=== PATIENT | female | born 1985 | race Caucasian/White ===

== ENCOUNTER 2017-07-05 21:55 | Emergency (ER) | payer MEDICAID | END 2017-07-05 23:04 | disposition home or self-care (01) | LOC: D.ER 21:55 | DX: S60.022A Contusion of left index finger without damage to nail, initial encounter (principal); X58.XXXA Exposure to other specified factors, initial encounter; Y93.89 Activity, other specified; Y92.019 Unspecified place in single-family (private) house as the place of occurrence of the external cause ==

== ENCOUNTER 2018-02-23 18:30 | Emergency (ER) | payer MEDICAID ==
[~2018-02-23] VITALS: Ht 154.9 cm; Wt 56.8 kg
[2018-02-23 18:43] VITALS: Ht 154.9 cm; Wt 56.8 kg
[2018-02-23] MEDS ORDERED: LITHIUM CI8 MEQ/5 ML (18:43)
[2018-02-23] MEDS ORDERED: GABAPENTIN100 MG (18:43)
[2018-02-23] MEDS ORDERED: PROZAC10 MG (18:44)
[2018-02-23] MEDS ORDERED: CLONAZEPAM2 MG/TAB (18:44)
[2018-02-23] MEDS ORDERED: VITAMIN B COMPL1 TAB PO (18:44)
[2018-02-23] MEDS ORDERED: HYDROCODON-ACE1 EAC7 PO (20:26)
[2018-02-23 20:41] VITALS: BP 122/67
== END 2018-02-23 20:42 | disposition home or self-care (01) ==
LOC: D.ER 18:30
DX: S62.637A Displaced fracture of distal phalanx of left little finger, initial encounter for closed fracture (principal); X58.XXXA Exposure to other specified factors, initial encounter; Y93.89 Activity, other specified; Y92.019 Unspecified place in single-family (private) house as the place of occurrence of the external cause; G80.9 Cerebral palsy, unspecified; F31.9 Bipolar disorder, unspecified

== ENCOUNTER 2018-03-05 23:32 | Emergency (ER) | payer MEDICAID ==
[~2018-03-05] VITALS: Ht 154.9 cm; Wt 56.8 kg
[~2018-03-05 23:32] MED LIST: CLONAZEPAM2 MG/TAB; GABAPENTIN100 MG; HYDROCODON-ACE1 EAC7 PO; LITHIUM CI8 MEQ/5 ML; PROZAC10 MG; VITAMIN B COMPL1 TAB PO
[2018-03-05 23:56] VITALS: BP 151/106; Ht 154.9 cm; Wt 56.8 kg
== END 2018-03-06 00:30 | disposition left against medical advice (07) ==
LOC: D.ER 23:32
DX: S69.90XA Unspecified injury of unspecified wrist, hand and finger(s), initial encounter (principal); X58.XXXA Exposure to other specified factors, initial encounter; Y93.9 Activity, unspecified; Y92.9 Unspecified place or not applicable

== ENCOUNTER 2018-03-23 23:17 | Emergency (ER) | payer MEDICAID ==
[~2018-03-23] VITALS: Ht 154.9 cm; Wt 54.5 kg
[2018-03-23 23:22] VITALS: BP 124/84; Ht 154.9 cm; Wt 54.5 kg
== END 2018-03-23 23:54 | disposition left against medical advice (07) ==
LOC: D.ER 23:17
DX: M79.642 Pain in left hand (principal)

== ENCOUNTER 2018-05-06 17:57 | Emergency (ER) | payer MEDICAID ==
[~2018-05-06] VITALS: Ht 154.9 cm; Wt 52.3 kg
[2018-05-06 18:01] VITALS: Ht 154.9 cm; Wt 52.3 kg
[2018-05-06 18:30] LABS: BASOPHILS 0.1 % (0-2); EOSINOPHILS 0.4 % (0-7); HEMATOCRIT 35.7 % (36.0-48.0); HEMOGLOBIN 11.4 g/dL (12-16); IMMATURE GRANULOCYTES 0.3 % (0-5); LYMPHOCYTES 12.4 % (15-50); MCH 26.1 pg (26.0-34.0); MCHC 31.9 g/dL (31.0-37.0); MCV 81.7 fL (80.0-100.0); MEAN PLATELET VOLUME 11.3 fL (7.4-10.4); MONOCYTES 6.8 % (2-11); PLATELET COUNT 213 10x3/uL (130-400); RBC 4.37 10x6/uL (4.00-5.40); RDW 16.9 % (11.5-14.5)
[2018-05-06 18:46] LABS: ALBUMIN 3.5 g/dL (3.4-5.0); ALKALINE PHOSPHATASE 71 U/L (46-116); ALT (SGPT) 42 U/L (10-68); BILIRUBIN - TOTAL 0.17 mg/dL (0.2-1.3); CALC OSMOLALITY 280 mosm/kg (275-300); CALCIUM 8.7 mg/dL (8.5-10.1); CARBON DIOXIDE 27.7 mmol/L (21.0-32.0); CHLORIDE - SERUM 104 mmol/L (98-107); CREATININE - SERUM 0.7 mg/dL (0.6-1.3); GLUCOSE 76 mg/dL (74-106); POTASSIUM - SERUM 3.6 mmol/L (3.5-5.1); SODIUM 142 mmol/L (136-145); UREA NITROGEN 9 mg/dL (7-18); eGFR NON AFRICAN AMERICAN > 90 mL/min (90-120)
[2018-05-06 20:55] LABS: APPEARANCE CLEAR (CLEAR); BILIRUBIN NEGATIVE (NEGATIVE); COLOR YELLOW (YELLOW); GLUCOSE NEGATIVE (NEGATIVE); KETONE NEGATIVE (NEGATIVE); NITRITE NEGATIVE (NEGATIVE); PROTEIN NEGATIVE (NEGATIVE); UROBILINOGEN NORMAL (NORMAL)
[2018-05-06 20:56] LABS: BACTERIA MODERATE /hpf (NONE SEEN); EPITHELIAL CELLS 0-5 /hpf (0-5); RED CELLS - URINE 0-5 /hpf (0-5); WHITE CELLS - URINE 0-5 /hpf (0-5); YEAST >1+ /hpf (NONE SEEN)
[2018-05-06 21:06] LABS: UDS - AMPHET POSITIVE QUAL (NEGATIVE); UDS - BARB NEGATIVE QUAL (NEGATIVE); UDS - BENZO POSITIVE QUAL (NEGATIVE); UDS - COCAINE NEGATIVE QUAL (NEGATIVE); UDS - OPIATE NEGATIVE QUAL (NEGATIVE); UDS - PCP NEGATIVE QUAL (NEGATIVE); UDS - THC POSITIVE QUAL (NEGATIVE)
[2018-05-06 22:24] LABS: HCG URINE NEGATIVE (NEGATIVE)
[2018-05-07 02:17] VITALS: BP 109/68
== END 2018-05-07 09:29 | disposition home or self-care (01) ==
LOC: D.ER 17:57
PROVIDERS: Family Medicine
DX: R41.82 Altered mental status, unspecified (principal); F19.10 Other psychoactive substance abuse, uncomplicated; G80.9 Cerebral palsy, unspecified

== ENCOUNTER 2018-05-25 21:47 | Emergency (ER) | payer MEDICAID ==
[~2018-05-25] VITALS: Ht 154.9 cm; Wt 54.5 kg
[2018-05-25 21:54] VITALS: Ht 154.9 cm; Wt 54.5 kg
[2018-05-25] MEDS ORDERED: KLONOPIN1 MG PO (23:30)
[2018-05-25 23:53] VITALS: BP 138/79
== END 2018-05-25 23:53 | disposition home or self-care (01) ==
LOC: D.ER 21:47
DX: F41.9 Anxiety disorder, unspecified (principal); F32.9 Major depressive disorder, single episode, unspecified; F17.200 Nicotine dependence, unspecified, uncomplicated

== ENCOUNTER 2018-06-27 20:47 | Emergency (ER) | payer MEDICAID ==
[~2018-06-27] VITALS: Ht 154.9 cm; Wt 54.5 kg
[~2018-06-27 20:47] MED LIST changes: +KLONOPIN1 MG PO
[2018-06-27 20:57] VITALS: Ht 154.9 cm; Wt 54.5 kg
[2018-06-27 22:16] VITALS: BP 121/84
== END 2018-06-27 22:16 | disposition home or self-care (01) ==
LOC: D.ER 20:47
DX: G89.18 Other acute postprocedural pain (principal); F17.200 Nicotine dependence, unspecified, uncomplicated

== ENCOUNTER 2018-08-06 17:11 | Emergency (ER) | payer MEDICAID ==
[~2018-08-06] VITALS: Ht 154.9 cm; Wt 54.5 kg
[2018-08-06 17:20] VITALS: BP 128/79; Ht 154.9 cm; Wt 54.5 kg
== END 2018-08-06 17:29 | disposition left against medical advice (07) ==
LOC: D.ER 17:11
DX: L98.9 Disorder of the skin and subcutaneous tissue, unspecified (principal)

== ENCOUNTER 2018-09-23 18:28 | Emergency (ER) | payer MEDICAID ==
[~2018-09-23] VITALS: Ht 154.9 cm; Wt 59.1 kg
[2018-09-23 18:32] VITALS: Ht 154.9 cm; Wt 59.1 kg
[2018-09-23] MEDS ORDERED: PROTONIX40 MG (18:37)
[2018-09-23] MEDS ORDERED: OXYCODONE H5 MG/5 ML (18:38)
[2018-09-23] MEDS ORDERED: ZOFRAN4 MG (18:38)
[2018-09-23] MEDS ORDERED: PHENERGAN25 M1 (18:39)
[2018-09-23] MEDS ORDERED: MIRALAX17 GM (18:39)
[2018-09-23] MEDS ORDERED: PHAZYME 125 MG125 MG (18:40)
[2018-09-23 19:37] LABS: BASOPHILS 0 % (0-2); EOSINOPHILS 0.2 % (0-7); HEMOGLOBIN 12.8 g/dL (12-16); IMMATURE GRANULOCYTES 0.2 % (0-5); LYMPHOCYTES 15.8 % (15-50); MCH 27.7 pg (26.0-34.0); MCV 86.6 fL (80.0-100.0); MEAN PLATELET VOLUME 12.1 fL (7.4-10.4); MONOCYTES 6.2 % (2-11); NEUTROPHILS 77.6 % (40-80); PLATELET COUNT 224 10x3/uL (130-400); RBC 4.62 10x6/uL (4.00-5.40); RDW 17.3 % (11.5-14.5); WBC 4.4 10x3/uL (4.8-10.8)
[2018-09-23 19:40] LABS: ALBUMIN 3.3 g/dL (3.4-5.0); ALKALINE PHOSPHATASE 79 U/L (46-116); ALT (SGPT) 44 U/L (10-68); AMYLASE - SERUM 81 U/L (25-115); BILIRUBIN - TOTAL 0.24 mg/dL (0.2-1.3); CALC OSMOLALITY 276 mosm/kg (275-300); CALCIUM 8.9 mg/dL (8.5-10.1); CARBON DIOXIDE 23.3 mmol/L (21.0-32.0); CHLORIDE - SERUM 101 mmol/L (98-107); CREATININE - SERUM 0.8 mg/dL (0.6-1.3); LIPASE 87 U/L (73-393); POTASSIUM - SERUM 4.4 mmol/L (3.5-5.1); PROTEIN - SERUM 6.8 g/dL (6.4-8.2); SODIUM 138 mmol/L (136-145); UREA NITROGEN 11 mg/dL (7-18); eGFR NON AFRICAN AMERICAN 89 mL/min (90-120)
[2018-09-23 19:41] LABS: GLUCOSE 134 mg/dL (74-106)
[2018-09-23] MEDS ORDERED: ZOFRAN8 MG PO (20:57)
[2018-09-23] MEDS ORDERED: TORADOL10 MG PO (20:57)
[2018-09-23 23:51] VITALS: BP 122/110
== END 2018-09-24 01:08 | disposition other institution (70) ==
LOC: D.ER 18:28
PROVIDERS: Family Medicine
DX: R10.9 Unspecified abdominal pain (principal); K59.00 Constipation, unspecified; Z98.890 Other specified postprocedural states

== ENCOUNTER 2018-12-17 09:20 | Emergency (ER) | payer OTHER ==
[~2018-12-17] VITALS: Ht 154.9 cm; Wt 52.3 kg
[~2018-12-17 09:20] MED LIST changes: +MIRALAX17 GM; +OXYCODONE H5 MG/5 ML; +PHAZYME 125 MG125 MG; +PHENERGAN25 M1; +PROTONIX40 MG; +TORADOL10 MG PO; +ZOFRAN4 MG; +ZOFRAN8 MG PO
[2018-12-17 09:23] VITALS: BP 133/96; Ht 154.9 cm; Wt 52.3 kg
[2018-12-17] MEDS ORDERED: KEFLEX500 MG PO (11:37)
[2018-12-17] MEDS ORDERED: SULFAMETHOXAZOL1 TA3 PO (11:37)
[2018-12-17] MEDS ORDERED: CYCLOBENZAPRINE10 MG PO (11:40)
[2018-12-17] MEDS ORDERED: ACETAMINOPHEN500 M1 PO (11:40)
--- NOTE | 2018-12-17 14:00 | NUR ---
DR. CASTRO NOTIFIED AND REVIEWED PT'S BEHAVIOR AND ASSESSMENT RESULTS. PT IS A LOW RISK PER DR. CASTRO. DR. CASTRO STATED TO GIVE RESOURCES TO PT AT TIME OF DISCHARGE. NO FURTHER ORDERS AT THIS TIME. RESOURCES REVIEWED WITH PT AND SHE VERBALIZED UNDERSTANDING.
== END 2018-12-17 14:10 | disposition home or self-care (01) ==
LOC: D.ER 09:20
DX: S21.111A Laceration without foreign body of right front wall of thorax without penetration into thoracic cavity, initial encounter (principal); W26.0XXA Contact with knife, initial encounter; Y93.89 Activity, other specified; Y92.89 Other specified places as the place of occurrence of the external cause

== ENCOUNTER 2019-01-29 16:19 | Emergency (ER) | payer OTHER ==
[~2019-01-29] VITALS: Ht 154.9 cm; Wt 56.8 kg
[~2019-01-29 16:19] MED LIST changes: +ACETAMINOPHEN500 M1 PO; +CYCLOBENZAPRINE10 MG PO; +KEFLEX500 MG PO; +SULFAMETHOXAZOL1 TA3 PO
[2019-01-29 16:24] VITALS: BP 125/94; Ht 154.9 cm; Wt 56.8 kg
[2019-01-29 18:12] LABS: BASOPHILS 0.2 % (0-2); EOSINOPHILS 1.5 % (0-7); HEMATOCRIT 35.6 % (36.0-48.0); HEMOGLOBIN 11.5 g/dL (12-16); IMMATURE GRANULOCYTES 0.8 % (0-5); LYMPHOCYTES 41.5 % (15-50); MCH 26.3 pg (26.0-34.0); MCHC 32.3 g/dL (31.0-37.0); MCV 81.3 fL (80.0-100.0); MEAN PLATELET VOLUME 10.6 fL (7.4-10.4); MONOCYTES 13.4 % (2-11); NEUTROPHILS 42.6 % (40-80); RBC 4.38 10x6/uL (4.00-5.40); RDW 15.5 % (11.5-14.5); WBC 6.6 10x3/uL (4.8-10.8)
[2019-01-29 18:24] LABS: PLATELET COUNT 332 10x3/uL (130-400)
[2019-01-29 18:34] LABS: ALBUMIN 3.8 g/dL (3.4-5.0); ALKALINE PHOSPHATASE 86 U/L (46-116); ALT (SGPT) 31 U/L (10-68); BILIRUBIN - TOTAL 0.24 mg/dL (0.2-1.3); CALC OSMOLALITY 276 mosm/kg (275-300); CALCIUM 8.6 mg/dL (8.5-10.1); CHLORIDE - SERUM 104 mmol/L (98-107); CREATININE - SERUM 0.7 mg/dL (0.6-1.3); POTASSIUM - SERUM 4.7 mmol/L (3.5-5.1); PROTEIN - SERUM 7.4 g/dL (6.4-8.2); SODIUM 139 mmol/L (136-145); UREA NITROGEN 12 mg/dL (7-18); eGFR NON AFRICAN AMERICAN > 90 mL/min (90-120)
[2019-01-29 18:53] LABS: GLUCOSE 84 mg/dL (74-106)
[2019-01-29] MEDS ORDERED: VIBRAMYCIN 100100 MG PO (19:15)
[2019-01-29] MEDS ORDERED: BUTALB-APAP-CA1 EACH PO (19:15)
== END 2019-01-29 19:35 | disposition home or self-care (01) ==
LOC: D.ER 16:19
PROVIDERS: Family Medicine
DX: L03.811 Cellulitis of head [any part, except face] (principal); M79.18 Myalgia, other site